=== PATIENT | female | born 1935 | race Caucasian/White ===

== ENCOUNTER 2017-09-18 21:26 | Inpatient (IN) ==
[2017-09-18] MEDS ORDERED: FUROSEMIDE 100 MG/10 ML VIAL IV STA (21:51)
[2017-09-18] MEDS ORDERED: ALBUTEROL/IPRATROPIUM 3 ML NEB RESP TX STA (21:51)
[2017-09-18] MEDS ORDERED: FUROSEMIDE 20 MG/2 ML VIAL ONE (22:20)
[2017-09-18 22:33] LABS: Basophils % 0.1 % (0.0-0.8); Hematocrit 22.8 VOL% (35.7-47.0); Hemoglobin 7.1 GM/DL (12.0-16.0); Immature Granulocytes % 1.1 %; Lymphocytes # 0.6 10*3/uL (1.4-4.0); Lymphocytes % 2.2 % (21.3-54.2); Mean Corpuscular HGB Conc 31.1 GM/DL (32-36); Mean Corpuscular Hemoglobin 24 PG (27-34); Mean Corpuscular Volume 78.1 FL (87-102); Mean Platelet Volume 10.5 FL (9.6-12.0); Monocytes # 0.8 10*3/uL (0.11-0.8); Monocytes % 2.8 % (1.7-12.7); Neutrophils # 25.8 10*3/uL (1.4-7.4); Neutrophils % 93.8 % (38.7-73.9); Platelet Count 282 T/CUMM (130-400); Red Blood Count 2.92 MC/CUMM (3.8-5.5); White Blood Count 27.5 T/CUMM (4-12)
[2017-09-18 22:36] LABS: Apearance,Urine CLEAR (Clear); Bacteria,Urine Occasional /HPF (Few); Bilirubin,Urine Negative (Negative); Blood, Urine Small mg/dL (Negative); Glucose,Urine (UA) Negative (Negative); Ketones,Urine Negative (Negative); Nitrite,Urine Negative (Negative); Protein,Urine Negative; RBC,Urine <1 /HPF (0-4); Squamous Epithelial Cell,Urine Occasional /HPF (0-10); Urine Color Straw (Yellow); Urine Specific Gravity 1.002 (1.001-1.035); Urine Urobilinogen < 2.0 EU/DL (0.2-1.0)
[2017-09-18 22:43] LABS: PT Patient Result 10.5 SECS
[2017-09-18 22:54] LABS: Alanine Aminotransferase 19 U/L (13-56); Albumin 1.5 G/DL (3.4-5.0); Alkaline Phosphatase 189 U/L (45-117); Aspartate Amino Transferase 33 U/L (0-37); Bilirubin,Total < 0.39 MG/DL (0.2-1.0); Blood Urea Nitrogen 11 MG/DL (7-18); Calcium 8.4 MG/DL (8.5-10.1); Glucose 139 MG/DL (74-106); Osmolality,Calculated 253.4 MOS/KG (273-304); Potassium 3.3 MMOL/L (3.5-5.1); Sodium 126 MMOL/L (136-145); Total Protein 5.9 G/DL (6.4-8.3)
[2017-09-18 23:00] LABS: Troponin I Only 0.083 NG/ML (0.00-0.045)
[2017-09-19 00:56] LABS: Band Neutrophils 1 % (0-10); Lymphocytes 3 % (20-55); Platelet Estimate Adequate; Polychromasia Slight; Segmented Neutrophils 95 % (50-85); Total Cells Counted 100
[2017-09-19 00:57] LABS: Hypochromasia 1+; Target Cells Slight
[2017-09-19] MEDS ORDERED: ONDANSETRON 4 MG/2 ML VIAL IV PRN (02:27)
[2017-09-19] MEDS ORDERED: ACETAMINOPHEN 325 MG TABLET PO PRN (02:27)
[2017-09-19] MEDS ORDERED: PROMETHAZINE 25 MG TABLET PO PRN (02:39)
[2017-09-19] MEDS ORDERED: POTASSIUM CHLORIDE 20 MEQ TABLET PO ONE (03:00)
[2017-09-19 07:01] LABS: Basophils # 0.1 10*3/uL (0.0-0.2); Basophils % 0.2 % (0.0-0.8); Hematocrit 25.5 VOL% (35.7-47.0); Immature Granulocytes % 4.5 %; Immature Granulocytes Absolute 1.93 #; Lymphocytes # 0.8 10*3/uL (1.4-4.0); Lymphocytes % 1.8 % (21.3-54.2); Mean Corpuscular HGB Conc 31.4 GM/DL (32-36); Mean Corpuscular Hemoglobin 24 PG (27-34); Mean Corpuscular Volume 77.7 FL (87-102); Monocytes # 0.9 10*3/uL (0.11-0.8); Neutrophils % 91.5 % (38.7-73.9); Platelet Count 264 T/CUMM (130-400); Red Blood Count 3.28 MC/CUMM (3.8-5.5); Red Cell Distribution Width 16.5 % (9.3-17.3)
[2017-09-19 07:08] LABS: White Blood Count 42.7 T/CUMM (4-12)
[2017-09-19 07:21] LABS: Calcium 8.9 MG/DL (8.5-10.1); Potassium 3.1 MMOL/L (3.5-5.1)
[2017-09-19 07:28] LABS: Band Neutrophils 7 % (0-10); Lymphocytes 2 % (20-55); Segmented Neutrophils 90 % (50-85); Total Cells Counted 100
[2017-09-19 07:29] LABS: Hypochromasia 1+; Microcytosis 1+; Polychromasia Slight; Target Cells Slight
[2017-09-19] MEDS ORDERED: hydroCHLOROthiazide 25 MG TABLET PO SCH (09:00)
[2017-09-19] MEDS ORDERED: SODIUM CHLORIDE 0.9% 1,000 ML IV PRN (09:08)
[2017-09-19] MEDS: ALLOPURINOL 300 MG TABLET PO SCH (09:49)
[2017-09-19] MEDS: CELECOXIB 200 MG CAPSULE PO SCH (09:49)
[2017-09-19] MEDS: POTASSIUM CHLORIDE 20 MEQ TABLET PO SCH (09:49)
[2017-09-19] MEDS: ENOXAPARIN 40 MG/0.4 ML SYRINGE SUBCUT SCH (09:50)
[2017-09-19] MEDS: PANTOPRAZOLE 40 MG TABLET PO SCH (09:50)
[2017-09-19] MEDS: CIPROFLOXACIN 500 MG TABLET PO SCH ×2 (09:50→20:51)
[2017-09-19] MEDS: ESTROGENS (CONJ) 0.625 MG TABLET PO SCH (09:50)
[2017-09-19] MEDS: SERTRALINE 50 MG TABLET PO SCH (09:50)
[2017-09-19] MEDS: OLMESARTAN 20 MG TABLET PO SCH (09:50)
[2017-09-19] MEDS: MONTELUKAST 10 MG TABLET PO SCH (09:50)
[2017-09-19] MEDS: FLUTICASONE/SALMETEROL 250-50 DISKUS 14 DOSE INH SCH ×2 (09:56→20:52)
[2017-09-19 19:54] LABS: Hematocrit 29.6 VOL% (35.7-47.0); Hemoglobin 9.3 GM/DL (12.0-16.0)
[2017-09-19] MEDS ORDERED: ZALEPLON 5 MG CAPSULE PO SCH ×3 (21:00→22:48)
[2017-09-20 06:27] LABS: Basophils # 0.1 10*3/uL (0.0-0.2); Basophils % 0.3 % (0.0-0.8); Eosinophils # 0.2 10*3/uL (0.0-0.87); Eosinophils % 0.5 % (0.00-10.9); Hematocrit 29.9 VOL% (35.7-47.0); Hemoglobin 9.5 GM/DL (12.0-16.0); Immature Granulocytes % 9.4 %; Immature Granulocytes Absolute 4.08 #; Lymphocytes # 0.7 10*3/uL (1.4-4.0); Lymphocytes % 1.7 % (21.3-54.2); Mean Corpuscular HGB Conc 31.8 GM/DL (32-36); Mean Corpuscular Hemoglobin 26 PG (27-34); Mean Corpuscular Volume 81.7 FL (87-102); Mean Platelet Volume 9.9 FL (9.6-12.0); Monocytes # 0.2 10*3/uL (0.11-0.8); Monocytes % 0.4 % (1.7-12.7); Neutrophils % 87.7 % (38.7-73.9); Platelet Count 275 T/CUMM (130-400); Red Blood Count 3.66 MC/CUMM (3.8-5.5); Red Cell Distribution Width 16.8 % (9.3-17.3)
[2017-09-20 06:31] LABS: White Blood Count 43.3 T/CUMM (4-12)
[2017-09-20 06:53] LABS: Band Neutrophils 1 % (0-10); Hypochromasia 1+; Lymphocytes 2 % (20-55); Microcytosis 1+; Segmented Neutrophils 96 % (50-85); Total Cells Counted 100
[2017-09-20 07:10] LABS: Albumin 1.6 G/DL (3.4-5.0); Bilirubin,Total 0.4 MG/DL (0.2-1.0); Calcium 8.7 MG/DL (8.5-10.1); Osmolality,Calculated 272.7 MOS/KG (273-304); Potassium 4.1 MMOL/L (3.5-5.1); Total Protein 5.5 G/DL (6.4-8.3)
[2017-09-20] MEDS: SERTRALINE 50 MG TABLET PO SCH (10:07)
[2017-09-20] MEDS: ESTROGENS (CONJ) 0.625 MG TABLET PO SCH (10:07)
[2017-09-20] MEDS: CIPROFLOXACIN 500 MG TABLET PO SCH ×2 (10:07→20:17)
[2017-09-20] MEDS: MONTELUKAST 10 MG TABLET PO SCH (10:07)
[2017-09-20] MEDS: OLMESARTAN 20 MG TABLET PO SCH (10:07)
[2017-09-20] MEDS: POTASSIUM CHLORIDE 20 MEQ TABLET PO SCH (10:07)
[2017-09-20] MEDS: ALLOPURINOL 300 MG TABLET PO SCH (10:07)
[2017-09-20] MEDS: PANTOPRAZOLE 40 MG TABLET PO SCH (10:07)
[2017-09-20] MEDS: CELECOXIB 200 MG CAPSULE PO SCH (10:07)
[2017-09-20] MEDS: ENOXAPARIN 40 MG/0.4 ML SYRINGE SUBCUT SCH (10:08)
[2017-09-20] MEDS: FLUTICASONE/SALMETEROL 250-50 DISKUS 14 DOSE INH SCH ×2 (10:08→20:17)
[2017-09-20] MEDS ORDERED: MAGNESIUM HYDROXIDE SUSP 30 ML UDCUP PO PRN (11:18)
[2017-09-21 07:30] LABS: Basophils # 0.3 10*3/uL (0.0-0.2); Basophils % 0.8 % (0.0-0.8); Eosinophils # 0.4 10*3/uL (0.0-0.87); Hematocrit 30.9 VOL% (35.7-47.0); Hemoglobin 9.4 GM/DL (12.0-16.0); Immature Granulocytes % 16.1 %; Immature Granulocytes Absolute 6.13 #; Lymphocytes # 0.5 10*3/uL (1.4-4.0); Lymphocytes % 1.4 % (21.3-54.2); Mean Corpuscular HGB Conc 30.4 GM/DL (32-36); Mean Corpuscular Hemoglobin 25 PG (27-34); Mean Corpuscular Volume 83.1 FL (87-102); Mean Platelet Volume 10.4 FL (9.6-12.0); Monocytes # 0.1 10*3/uL (0.11-0.8); Monocytes % 0.2 % (1.7-12.7); NRBC # 0.03 10*3/uL; Neutrophils # 30.6 10*3/uL (1.4-7.4); Neutrophils % 80.5 % (38.7-73.9); Platelet Count 265 T/CUMM (130-400); Red Blood Count 3.72 MC/CUMM (3.8-5.5); Red Cell Distribution Width 17.5 % (9.3-17.3)
[2017-09-21 08:03] LABS: Albumin 1.6 G/DL (3.4-5.0); Bilirubin,Total 0.4 MG/DL (0.2-1.0); Calcium 8.8 MG/DL (8.5-10.1); Osmolality,Calculated 273.7 MOS/KG (273-304); Potassium 4.2 MMOL/L (3.5-5.1); Total Protein 5.7 G/DL (6.4-8.3)
[2017-09-21 08:10] LABS: Anisocytosis Slight; Band Neutrophils 15 % (0-10); Eosinophils 1 % (0-10); Lymphocytes 1 % (20-55); Platelet Estimate Normal; Segmented Neutrophils 83 % (50-85); Total Cells Counted 100
[2017-09-21] MEDS: CELECOXIB 200 MG CAPSULE PO SCH (08:45)
[2017-09-21] MEDS: PANTOPRAZOLE 40 MG TABLET PO SCH (08:45)
[2017-09-21] MEDS: OLMESARTAN 20 MG TABLET PO SCH (08:45)
[2017-09-21] MEDS: MONTELUKAST 10 MG TABLET PO SCH (08:45)
[2017-09-21] MEDS: ESTROGENS (CONJ) 0.625 MG TABLET PO SCH (08:45)
[2017-09-21] MEDS: FLUTICASONE/SALMETEROL 250-50 DISKUS 14 DOSE INH SCH (08:46)
[2017-09-21] MEDS: ALLOPURINOL 300 MG TABLET PO SCH (08:46)
[2017-09-21] MEDS: SERTRALINE 50 MG TABLET PO SCH (08:46)
[2017-09-21] MEDS: POTASSIUM CHLORIDE 20 MEQ TABLET PO SCH (08:46)
[2017-09-21] MEDS: CIPROFLOXACIN 500 MG TABLET PO SCH (08:46)
[2017-09-21] MEDS: ENOXAPARIN 40 MG/0.4 ML SYRINGE SUBCUT SCH (08:46)
[2017-09-21 09:08] VITALS: BP 134/75
[2017-09-22] MEDS ORDERED: predniSONE 20 MG TABLET PO SCH (09:00)
== END 2017-09-21 10:44 | disposition home or self-care (01) | DRG 187 ==
LOC: EDBD → EDUNIT# → N.EDINP 21:26 → N.ED 21:26 → N.5E 09-19 02:44
PROVIDERS: ADMIT Internal Medicine; ATTEND Internal Medicine